=== PATIENT | female | born 1995 | race Two or more races ===

== ENCOUNTER 2024-09-17 09:29 | Emergency (ER) | payer OTHER ==
[~2024-09-17] VITALS: Ht 167.6 cm; Wt 104.3 kg
[2024-09-17] MEDS ORDERED: SYNTHROID175 MCG PO (10:31)
[2024-09-17] MEDS ORDERED: CEFTRIAXONE SODIUM 1,000 MG VIAL ONE (11:01)
[2024-09-17] MEDS ORDERED: CEFTRIAXONE SODIUM 1,000 MG VIAL IV ONE (11:15)
== END 2024-09-17 11:19 | disposition home or self-care (01) ==
LOC: ER 09:55
DX: N76.4 Abscess of vulva (principal); E03.8 Other specified hypothyroidism